=== PATIENT | male | born 1930 | race Caucasian/White ===

== ENCOUNTER → 2018-06-08 | Outpatient (CLI) | payer OTHER, BC ==
[~2018-06-08] MED LIST: DORZ10DR7 EACHEYE; LATA2.5D3 EACHEYE; LISI5TAB7 PO; MELO7.5T31 PO; ONDA4TAB13 SL; SIMV10TA3 PO; TAMS0.4C2 PO
== END | disposition home or self-care (01) ==
LOC: CFH 09:29
PROVIDERS: ATTEND Nurse Practitioner
DX: I71.4 Abdominal aortic aneurysm, without rupture (principal)
CPT/HCPCS: 93978

== ENCOUNTER 2018-10-02 10:32 | Inpatient (IN) | payer OTHER, BC ==
[~2018-10-02] VITALS: Ht 170.2 cm; Wt 64.0 kg
[2018-10-02] MEDS ORDERED: SODIUM CHLORIDE FLUSH 10ML SYR IVF ONE (11:00)
[2018-10-02 11:53] LABS: BASOPHILS % (AUTO) 0 % (0-1); EOSINOPHILS # (AUTO) 0.19 x10^3/uL (0-0.4); EOSINOPHILS % (AUTO) 3 % (1-7); LYMPHOCYTES # (AUTO) 1.38 x10^3/uL (1-3.4); LYMPHOCYTES % (AUTO) 18 % (22-44); MD NO; MEAN CORPUSCULAR HEMOGLOBIN 27.1 pg (27.5-34.5); MEAN CORPUSCULAR HGB CONC 32.9 g/dL (33.2-36.2); MEAN CORPUSCULAR VOLUME 82.3 fL (81-97); MEAN PLATELET VOLUME 8.3 fL (7.4-10.4); MONOCYTES # (AUTO) 0.49 x10^3/uL (0.2-0.8); MONOCYTES % (AUTO) 6 % (2-9); NEUTROPHILS # (AUTO) 5.68 x10^3/uL (1.8-6.8); NEUTROPHILS % (AUTO) 73 % (42-75); PLATELET COUNT 305 x10^3/uL (130-400); RED CELL DISTRIBUTION WIDTH 17.1 % (9.4-14.8)
--- NOTE | 2018-10-02 11:55 | NUR ---
PT TO ROOM FROM LOBBY.
[2018-10-02 11:58] LABS: INTERNATIONAL NORMALIZED RATIO 0.94 (0.93-1.1)
[2018-10-02 12:00] LABS: ALBUMIN 3.4 g/dL (3.4-5.0); ANION GAP 7 mmol/L (5-15); CALCIUM 8.9 mg/dL (8.5-10.1); CHLORIDE 102 mmol/L (98-107)
[2018-10-02 12:05] LABS: CREATININE 1.19 mg/dL (0.7-1.3); TROPONIN I < 0.015 ng/mL (0.000-0.045)
--- NOTE | 2018-10-02 12:15 | NUR ---
Seen by PIT, results all back. Pt brought in by family for R sd facial droop, unsteady gait & dysarthria x 2 days. Pt had MGLF @ home on 09/30. Refused to go to hospital for medical care until today. 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 Will not be assessing gait at this time. Cardiac, NIBP & SPO2 monitors placed. Family & pt aware of POC for admit.
[2018-10-02] MEDS ORDERED: ASPIRIN 325 MG TABLET PO ONE (12:30)
[2018-10-02] MEDS ORDERED: ASPIRIN 81 MG TABLET EC ONE (12:40)
--- NOTE | 2018-10-02 12:52 | NUR ---
Pt passed swallow study. States he does not want to be admitted to the hospital, declines IV. Will inform ER MD.
--- NOTE | 2018-10-02 13:26 | NUR ---
After pt & discussed admission at length w/ Dr. Lock, agrees to stay, take meds & allow IV to be est. No neuro changes since arrival. Pt is cooperative, VSS, family @ BS.
--- NOTE | 2018-10-02 14:10 | NUR ---
Room assigned upstairs. Pt & family updated.
--- NOTE | 2018-10-02 14:18 | NUR ---
Report to HOMER Patel.
[2018-10-02] MEDS ORDERED: GADOBUTROL 7.5 MMOL/7.5 ML VIAL ONE (15:14)
[2018-10-02 15:57] VITALS: BP 165/65
[2018-10-02 20:00] VITALS: BP 145/71
[2018-10-02] MEDS: ATORVASTATIN 40 MG TABLET PO SCH (20:40)
[2018-10-02] MEDS: LATANOPROST OPHTH 0.005%, 2.5ML EACHEYE SCH (21:00)
[2018-10-03] VITALS (7 sets, daily range): BP systolic 117–155; BP diastolic 57–83
[2018-10-03 06:08] LABS: BASOPHILS # (AUTO) 0.02 x10^3/uL (0-0.1); BASOPHILS % (AUTO) 0 % (0-1); EOSINOPHILS # (AUTO) 0.32 x10^3/uL (0-0.4); EOSINOPHILS % (AUTO) 4 % (1-7); LYMPHOCYTES # (AUTO) 1.52 x10^3/uL (1-3.4); LYMPHOCYTES % (AUTO) 20 % (22-44); MD NO; MEAN CORPUSCULAR HEMOGLOBIN 27.3 pg (27.5-34.5); MEAN CORPUSCULAR HGB CONC 33.1 g/dL (33.2-36.2); MEAN CORPUSCULAR VOLUME 82.5 fL (81-97); MEAN PLATELET VOLUME 8.6 fL (7.4-10.4); MONOCYTES # (AUTO) 0.54 x10^3/uL (0.2-0.8); MONOCYTES % (AUTO) 7 % (2-9); NEUTROPHILS % (AUTO) 69 % (42-75); PLATELET COUNT 290 x10^3/uL (130-400); RED BLOOD COUNT 4.82 x10^6/uL (4.38-5.82); RED CELL DISTRIBUTION WIDTH 16.9 % (9.4-14.8)
[2018-10-03 06:31] LABS: CHLORIDE 103 mmol/L (98-107)
[2018-10-03 06:42] LABS: ALANINE AMINOTRANSFERASE 15 U/L (12-78); ALKALINE PHOSPHATASE 127 U/L (45-117); ANION GAP 8 mmol/L (5-15); BILIRUBIN,TOTAL 0.5 mg/dL (0.2-1.0); CALCIUM 8.4 mg/dL (8.5-10.1); CHOL/HDL RATIO 3.5; CHOLESTEROL, TOTAL 179 mg/dL (140-239); CREATININE 1.12 mg/dL (0.7-1.3); HDL CHOL % 28 % (26-37); HDL CHOLESTEROL (DIRECT) 51 mg/dL (40-60); LDL CHOLESTEROL,CALCULATED 102 mg/dL (54-169); TOTAL PROTEIN 7.6 g/dL (6.4-8.2); TRIGLYCERIDES 128 mg/dL (50-200); VLDL CHOLESTEROL 26 mg/dL (0-25)
[2018-10-03] MEDS: CLOPIDOGREL 75 MG TABLET PO SCH (09:23)
[2018-10-03] MEDS: ASPIRIN 81 MG TABLET CHEW PO/NG SCH (09:24)
[2018-10-03] MEDS: TAMSULOSIN 0.4 MG CAP.ER.24H PO SCH (09:24)
--- NOTE | 2018-10-03 16:58 | NUR ---
REC: Chopped diet with NTL with strict aspiration precautions Addendum: 10/03/18 at 1658 by Eneida GUZMAN Amended: Links added.
[2018-10-03] MEDS: ATORVASTATIN 40 MG TABLET PO SCH (21:40)
[2018-10-03] MEDS: LATANOPROST OPHTH 0.005%, 2.5ML EACHEYE SCH (21:45)
[2018-10-03] MEDS ORDERED: KETOROLAC 30 MG/1 ML IVPush PRN (22:30)
[2018-10-04] VITALS: BP 112/66
[2018-10-04 04:00] VITALS: BP 114/53
[2018-10-04 07:15] VITALS: BP 129/67
[2018-10-04] MEDS: TAMSULOSIN 0.4 MG CAP.ER.24H PO SCH (08:38)
[2018-10-04] MEDS: CLOPIDOGREL 75 MG TABLET PO SCH (08:38)
[2018-10-04] MEDS: ASPIRIN 81 MG TABLET CHEW PO/NG SCH (08:38)
[2018-10-04] MEDS ORDERED: POLYETHYLENE GLYCOL 17 GM PACKET PO PRN (10:00)
[2018-10-04 13:25] VITALS: BP 128/68
[2018-10-04 20:17] VITALS: BP 111/64
[2018-10-04] MEDS: DOCUSATE 100 MG CAPSULE PO SCH (21:04)
[2018-10-04] MEDS: LATANOPROST OPHTH 0.005%, 2.5ML EACHEYE SCH (21:04)
[2018-10-04] MEDS: ATORVASTATIN 40 MG TABLET PO SCH (21:04)
[2018-10-05 03:36] VITALS: BP 99/62
[2018-10-05 07:35] VITALS: BP 138/68
[2018-10-05] MEDS: TAMSULOSIN 0.4 MG CAP.ER.24H PO SCH (08:41)
[2018-10-05] MEDS: ASPIRIN 81 MG TABLET CHEW PO/NG SCH (08:41)
[2018-10-05] MEDS: DOCUSATE 100 MG CAPSULE PO SCH ×2 (08:41→20:56)
[2018-10-05] MEDS: CLOPIDOGREL 75 MG TABLET PO SCH (08:41)
[2018-10-05] MEDS ORDERED: ATOR40TA78 PO (10:56)
[2018-10-05] MEDS ORDERED: CLOP75TA PO (10:56)
[2018-10-05] MEDS ORDERED: ASPI-515 PO/NG (10:56)
[2018-10-05 13:34] VITALS: BP 135/73
--- NOTE | 2018-10-05 14:03 | NUR ---
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
[2018-10-05 20:36] VITALS: BP 138/74
[2018-10-05] MEDS: ATORVASTATIN 40 MG TABLET PO SCH (20:55)
[2018-10-05] MEDS: LATANOPROST OPHTH 0.005%, 2.5ML EACHEYE SCH (20:55)
[2018-10-06 03:22] VITALS: BP 108/63
[2018-10-06 05:37] LABS: BASOPHILS # (AUTO) 0.02 x10^3/uL (0-0.1); BASOPHILS % (AUTO) 0 % (0-1); EOSINOPHILS # (AUTO) 0.48 x10^3/uL (0-0.4); EOSINOPHILS % (AUTO) 6 % (1-7); LYMPHOCYTES # (AUTO) 1.91 x10^3/uL (1-3.4); LYMPHOCYTES % (AUTO) 22 % (22-44); MD NO; MEAN CORPUSCULAR HEMOGLOBIN 27.4 pg (27.5-34.5); MEAN CORPUSCULAR HGB CONC 32.8 g/dL (33.2-36.2); MEAN CORPUSCULAR VOLUME 83.4 fL (81-97); MEAN PLATELET VOLUME 8.7 fL (7.4-10.4); MONOCYTES # (AUTO) 0.66 x10^3/uL (0.2-0.8); MONOCYTES % (AUTO) 8 % (2-9); NEUTROPHILS # (AUTO) 5.47 x10^3/uL (1.8-6.8); NEUTROPHILS % (AUTO) 64 % (42-75); PLATELET COUNT 275 x10^3/uL (130-400); RED BLOOD COUNT 4.87 x10^6/uL (4.38-5.82); RED CELL DISTRIBUTION WIDTH 16.8 % (9.4-14.8)
[2018-10-06 05:48] LABS: ALBUMIN 2.9 g/dL (3.4-5.0); CALCIUM 8.5 mg/dL (8.5-10.1); CHLORIDE 107 mmol/L (98-107)
[2018-10-06 05:51] LABS: ANION GAP 6 mmol/L (5-15); CREATININE 1.07 mg/dL (0.7-1.3)
[2018-10-06 07:10] VITALS: BP 126/69
[2018-10-06] MEDS: TAMSULOSIN 0.4 MG CAP.ER.24H PO SCH (07:50)
[2018-10-06] MEDS: DOCUSATE 100 MG CAPSULE PO SCH (07:50)
[2018-10-06] MEDS: ASPIRIN 81 MG TABLET CHEW PO/NG SCH (07:50)
[2018-10-06] MEDS: CLOPIDOGREL 75 MG TABLET PO SCH (07:50)
== END 2018-10-06 12:33 | DRG 64 ==
LOC: ED 11:56 → EDIP 13:19 → 4EST 14:33
PROVIDERS: ADMIT Internal Medicine; ATTEND Internal Medicine
DX: I63.9 Cerebral infarction, unspecified (principal); G93.41 Metabolic encephalopathy; I50.30 Unspecified diastolic (congestive) heart failure; R47.01 Aphasia; R29.705 NIHSS score 5; R27.0 Ataxia, unspecified; R47.1 Dysarthria and anarthria; E23.6 Other disorders of pituitary gland; I11.0 Hypertensive heart disease with heart failure; E78.5 Hyperlipidemia, unspecified; E78.00 Pure hypercholesterolemia, unspecified; N40.0 Benign prostatic hyperplasia without lower urinary tract symptoms; D64.9 Anemia, unspecified; R29.810 Facial weakness; W18.30XA Fall on same level, unspecified, initial encounter; Z79.02 Long term (current) use of antithrombotics/antiplatelets; Z79.82 Long term (current) use of aspirin; Z82.49 Family history of ischemic heart disease and other diseases of the circulatory system; Z87.891 Personal history of nicotine dependence
CPT/HCPCS: 0399T; 36415; 70450; 70553; 71045; 80048; 80053; 80061; 82040; 83735; 84100; 84484; 85025; 85610; 93005; 93306; 93880; 99285; A9585; G0378; J1885; 92523-GN